=== PATIENT | female | born 2000 | race Caucasian/White ===

== ENCOUNTER 2025-06-23 09:35 | Outpatient (REF) | payer BC, SELFPAY ==
[2025-06-23 14:30] LABS: MANUAL DIFF FLAG NO
[2025-06-23 14:35] LABS: Hematocrit 42.2 % (37.0-47.0); Hemoglobin 14.5 g/dl (12.0-16.0); Imm Gran Abs Auto 0.02 X10*3/uL (0.00-0.03); Imm Gran Pct Auto 0.5 % (0.0-0.4); Lymphocytes Absolute Auto 1.4 X10*3/uL (1.2-4.9); Mean Corpuscular HGB Conc 34.4 g/dl (31.0-35.0); Mean Corpuscular Hemoglobin 30.7 pg (27.0-33.0); Mean Corpuscular Volume 89.2 fL (80.0-98.0); NRBC Abs Auto 0.000 X10*3/uL (0.0-0.012); NRBC Pct Auto 0.0 /100WBC (0.0-0.2); Platelet Count 271 X10*3/uL (160-400); Red Blood Count 4.73 X10*6/uL (4.20-5.50); White Blood Count 4.1 X10*3/uL (4.8-10.8)
[2025-06-23 15:09] LABS: Alanine Aminotransferase 14 U/L (0-31); Albumin Level 4.8 g/dL (3.5-5.0); Alkaline Phosphatase 66 U/L (39-117); Anion Gap 11 (12-20); Aspartate Amino Transferase 27 U/L (5-31); Blood Urea Nitrogen 10 mg/dL (9-16); Calcium 9.5 mg/dL (8.4-10.2); Carbon Dioxide 24 mmol/L (22-29); Chloride 107 mmol/L (96-108); Cholesterol 78 mg/dL (<200); Estimated Glomerular Filt Rate > 60; HDL Cholesterol 44 mg/dL (>40); Potassium 4.1 mmol/L (3.3-5.1); Sodium 138 mmol/L (135-145); Total Protein 7.3 g/dL (6.5-8.0); Triglycerides 60 mg/dL (<150)
== END 2025-06-23 09:36 | disposition home or self-care (01) ==
LOC: HO.WFDLDS 09:35
PROVIDERS: PCP Internal Medicine; Visit Provider Internal Medicine
DX: Z00.00 Encounter for general adult medical examination without abnormal findings (principal); Z13.0 Encounter for screening for diseases of the blood and blood-forming organs and certain disorders involving the immune mechanism; Z13.220 Encounter for screening for lipoid disorders; Z13.228 Encounter for screening for other metabolic disorders; R35.89 Other polyuria; Z23 Encounter for immunization
CPT/HCPCS: 36415; 80053; 80061; 83036; 84443; 85025; 90471; 90656; 90715; 96127

== ENCOUNTER 2025-06-23 09:35 | Outpatient (AMB) | payer BC, SELFPAY ==
--- NOTE | 2025-06-23 09:40 | MHC.PC.OV ---
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 HEENT: Denies changes in vision and hearing. RESPIRATORY: Denies SOB and cough. CV: Denies palpitations and CP GI: Denies abdominal pain, nausea, vomiting and diarrhea. : Denies dysuria and urinary frequency. MSK: Denies new myalgia and joint pain. SKIN: Denies rash and pruritus. NEUROLOGICAL: Denies headache PSYCHIATRIC: Denies recent changes in mood. PHYSICAL EXAM: GENERAL: Alert and oriented x 3. NAD EYES: EOMI. Anicteric. HENT: Moist mucous membranes. No scleral icterus. No cervical lymphadenopathy. LUNGS: Clear to auscultation bilaterally. CARDIOVASCULAR: Regular rate and rhythm. No murmur. No JVD. ABDOMEN: Soft, non-tender +bs EXTREMITIES: No edema. Non-tender. SKIN: No rashes or lesions. Warm. NEUROLOGIC: No focal neurological deficits. CN II-XII grossly intact PSYCHIATRIC: Cooperative. Appropriate mood and affect [facility] Social History Housing: House Patient Tobacco Use Status: Never used Tobacco e-Cigarette/Vaping Use: Never Used Second Hand Smoke Exposure: No service: No Current occupational status: employed Current occupation: [employer] Current occupational exposures/hazards: No Cognitive needs: No Hearing needs: No Vision needs: No Questionnaire PHQ-9 Over the last 2 weeks, how often have you been bothered by any of the following problems? 1. Little interest or pleasure in doing things: not at all 2. Feeling down, depressed, or hopeless: not at all 3. Trouble falling or staying asleep, or sleeping too much: several days 4. Feeling tired or having little energy: not at all 5. Poor appetite or overeating: not at all 6. Feeling bad about yourself - or that you are a failure or have let yourself or your family down: not at all 7. Trouble concentrating on things, such as reading the newspaper or watching television: not at all 8. Moving or speaking so slowly that other people could have noticed. Or the opposite - being so fidgety or restless that you have been moving around a lot more than usual: not at all 9. Thoughts that you would be better off or of hurting yourself in some way: not at all Total score: 1 Depression Screening Interpretation: Negative Depression Screening Done: Yes 55474 - PHQ-9 Billing: Yes Source: Developed by Drs. Octavio Dickerson, Caity Bernard, Reji Grullon and colleagues, with an educational matias from [employer]. Thrive Questionnaire Date Thrive assessed: 06/18/25 I am a: Patient What is your living situation today?: I have a steady place to live Within the past 12 months, did the food you bought not last and you didn't have the money to get more?: Never true Within the past 12 months, did you worry whether your food would run out before you got money to buy more?: Never true Do you have trouble paying for medicines?: No Do you have trouble getting transportation to medical appointments?: No Do you have trouble paying your heating and electricity bill?: No Do you have trouble taking care of your child, family member or friend?: No Do you have trouble with day-to-day activities such as bathing, preparing meals, shopping, managing finances, etc.?: No Are you currently unemployed and looking for a job?: No Are you interested in more education?: No Please select the resources that you would like help with: None Currently or been in a relationship where the following occur: No concerns reported THRIVE Score: 0 AUDIT C Alcohol Use Questionnaire (AUDIT-C) 1. How often do you have a drink containing alcohol?: 2-4 times a month 2. How many drinks containing alcohol do you have on a typical day when you are drinking?: 1 or 2 3. How often do you have six or more drinks on one occasion?: Less than monthly Total Score: 3 ANKIT-7 AMB Questionnaire ANKIT-7 Feeling nervous, anxious, or on edge: 0 = Not at all Not being able to stop or control worryin = Not at all Worrying too much about different things: 0 = Not at all Trouble relaxin = Not at all Being so restless that it is hard to sit still: 0 = Not at all Becoming easily annoyed or irritable: 0 = Not at all Feeling afraid as if something awful might happen: 0 = Not at all Total ANKIT-7 score (0-4 normal; 5-9 mild; 10-14 moderate; 15-21 severe): 0 Source: Developed by Drs. Octavio Dickerson, Caity Bernard, Reji Grullon and colleagues, with an educational matias from [employer]. Physical exam (Primary Care) Vital Signs: Last Vital Signs Temp 98.7 F 06/23/25 09:42 Pulse 80 06/23/25 09:42 Resp 12 06/23/25 09:42 BP 104/70 06/23/25 09:42 Pulse Ox 98 06/23/25 09:42 Oxygen Delivery Method Room Air 06/23/25 09:42 BMI result Body Mass Index 29.1 Tobacco/Smoking Status: Tobacco use Status Tobacco use date assessed 06/23/25 06/23/25 09:42 Patient Tobacco Use Status Never used Tobacco 06/23/25 09:42 e-Cigarette/Vaping Use Never Used 06/23/25 09:42 PHQ-9: PHQ-9 Score PHQ-9: Total score 1 06/23/25 10:18 Depression Screening Interpretation: Negative Thrive Assessment: Date of Thrive Assessment Date Thrive assessed 06/18/25 06/23/25 09:42 Currently or been in a relationship where the following occur: No concerns reported Office Procedures Flu Questionnaire Does the patient have a severe egg allergy?: No Does the patient have severe life threatening allergies?: No Does the patient have a fever or illness today?: No Has the patient ever had Guillain-Mcgraw Syndrome?: No Has the patient ever had any past reaction to a flu shot?: No Comment: Questioned by Caitlyn Allen MA Immunizations Fluarix [id number] (PF) 45 mcg (15 mcg x 3)/0.5 mL IM syringe Performing Provider: Stephanie Gonzalez MD Performing Location: [facility] [place] Family Medicine Administered by: Joselito Nuñez RN on 06/23/25 10:19 Dose Route Admin Location Dispensed Lot Number Expiration Date NDC Director Of Estate 0.5 mL IM Left Deltoid 0.5 mL [id number] 03/20/26 86036-126-46 [employer]LAXOSM[employer] VIS Given Date VIS Provided VIS Publication Date 06/23/25 Single Vaccine 24 Eligibility Eligibility Date Funding Source Not VFC Eligible 06/23/25 Private Administration Comments: administered by Caitlyn Allen MA Boostrix Tdap 2.5 Lf unit-8 mcg-5 Lf/0.5 mL intramuscular syringe Performing Provider: Stephanie Gonzalez MD Performing Location: [facility] Administered by: Joselito Nuñez RN on 06/23/25 10:19 Dose Route Admin Location Dispensed Lot Number Expiration Date NDC Director Of Estate 0.5 mL IM Right Deltoid 0.5 mL [id number] 07/14/27 30719-331-14 [employer]LAXOSMITHKLINE Total Dispensed Waste 0.5 mL 0 % VIS Given Date VIS Provided VIS Publication Date 06/23/25 Single Vaccine 21 Eligibility Eligibility Date Funding Source Not VFC Eligible 06/23/25 Private Administration Comments: administered by Caitlyn Allen MA Coding Level of Care Code New Pt Prev Care 18-39yr(04095 Diagnoses Physical exam Z00.00 Additional Codes PHQ-9 - 42403 - PHQ-9 Billing: Yes ([id number]) Assessment & Plan Assessment & Plan (1) Physical exam: Code(s): Z00.00 - Encounter for general adult medical examination without abnormal findings Plan 24 year old to establish care and for CPE Past medical, surgical, social reviewed Preventive measures for age discussed 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 Panel 06/23/25 R3. - Other polyuria, Z13.0 - Encounter for screening for diseases of the blood and blood-forming organs and certain disorders involving the immune mechanism, Z13.220 - Encounter for screening for lipoid disorders, Z13.228 - Encounter for screening for other metabolic disorders Lipid Panel 06/23/2589 - Other polyuria, Z13.0 - Encounter for screening for diseases of the blood and blood-forming organs and certain disorders involving the immune mechanism, Z13.220 - Encounter for screening for lipoid disorders, Z13.228 - Encounter for screening for other metabolic disorders Hemoglobin A1c 06/23/25 R3. - Other polyuria, Z13.0 - Encounter for screening for diseases of the blood and blood-forming organs and certain disorders involving the immune mechanism, Z13.220 - Encounter for screening for lipoid disorders, Z13.228 - Encounter for screening for other metabolic disorders TSH reflex Free T4 06/23/25 R3 - Other polyuria, Z13.0 - Encounter for screening for diseases of the blood and blood-forming organs and certain disorders involving the immune mechanism, Z13.220 - Encounter for screening for lipoid disorders, Z13.228 - Encounter for screening for other metabolic disorders Influenza [id number] Immunization 06/23/25 Z23 - Encounter for immunization TDaP Immunization 06/23/25 Z23 - Encounter for immunization
[2025-06-23 09:42] VITALS: BP 104/70; PULSE 80; RESP 12; TEMP 37.1; O2SAT 98; BMI 29.1
--- OUTSIDE RECORDS SUMMARY | 2025-06-23 10:13 | XMS_ITS | Encounter Summary ---
Author Organization [facility] Address [address] [place] [address] Phone Care Team Providers Care Ems Educator Name Role Phone Mariam Juares MD Primary Care Provider [phone] Encounter Details Date Type Department Care Team (Late st Contact Info) Description 01/15/2015 Documentation [facility] [place] [address] [place] [address] Family Medicine, Physician [address] [place], [place] [id number] Social History Tobacco Use Types Packs/Day Years Used Date Smoking Tobacco: Never Assessed Comments Unknown Sex and Gender Information Value Date Recorded Sex Assigned at Not on file Legal Sex Female 5:10 PM EDT Gender Identity Not on file Sexual Orientation Not on file documented as of this encounter Plan of Treatment Not on file documented as of this encounter Visit Diagnoses Not on filedocumented in this encounter Care Teams Ems Educator Relationship Specialty Start Date End Date Mariam Juares MD [address] [place] [address] [place] [address] PCP - General 05/01/17 05/13/23 documented as of this encounter
--- OUTSIDE RECORDS SUMMARY | 2025-06-23 10:13 | XMS_ITS | Encounter Summary ---
Author Organization [facility] Address [address] [place] [address] Phone Care Team Providers Care Technical Adjuster Name Role Phone Mariam Juares MD Primary Care Provider [phone] Encounter Details Date Type Department Care Team (Late st Contact Info) Description 03/31/2011 Documentation [facility] [address] [place] [address] Family Medicine, Physician [address] [place], [place] [phone] Social History Tobacco Use Types Packs/Day Years [...] on filedocumented in this encounter Care Teams Technical Adjuster Relationship Specialty Start Date End Date Mariam Juares MD [address] [place] [address] [place] [address] PCP - General 05/01/17 05/13/23 documented as of this encounter
--- OUTSIDE RECORDS SUMMARY | 2025-06-23 10:13 | XMS_ITS | Encounter Summary ---
Author Organization [facility] Address [address] [place] [address] Phone Care Team Providers Care General Maintenance Engineer Name Role Phone Mariam Juares MD Primary Care Provider [phone] Encounter Details Date Type Department Care Team (Late st Contact Info) Description 05/21/2016 Documentation [facility] [place] Family Medicine [address] [place] [address] Family Medicine, Physician [facility] [address] [place], [place] [address] Social History Tobacco Use Types Packs/Day Years Used Date Smoking Tobacco: Never Comments:Never smoker Comments Unknown Sex and Gender Information Value Date Recorded Sex Assigned at Not on file Legal Sex Female 5:10 PM EDT Gender Identity Not on file Sexual Orientation Not on file documented as of this encounter Plan of Treatment Not on file documented as of this encounter Visit Diagnoses Not on filedocumented in this encounter Care Teams General Maintenance Engineer Relationship Specialty Start Date End Date Mariam Juares MD [address] [place] [address] [place] [address] PCP - General 05/01/17 05/13/23 documented as of this encounter
--- OUTSIDE RECORDS SUMMARY | 2025-06-23 10:13 | XMS_ITS | Encounter Summary ---
Author Organization [facility] Address [address] [place] [address] Phone Care Team Providers Care Mooner Name Role Phone Mariam Juares MD Primary Care Provider [phone] Encounter Details Date Type Department Care Team (Late st Contact Info) Description 12/06/2013 Documentation [facility] [address] [place] [address] Family Medicine, Physician [address] [place], [place] [phone] Social History Tobacco Use Types Packs/Day Years [...] on filedocumented in this encounter Care Teams Mooner Relationship Specialty Start Date End Date Mariam Juares MD [address] [place] [address] [place] [address] PCP - General 05/01/17 05/13/23 documented as of this encounter
--- OUTSIDE RECORDS SUMMARY | 2025-06-23 10:13 | XMS_ITS | Encounter Summary ---
Author Organization [facility] Address [address] [place] [address] Phone Care Team Providers Care Child Welfare Assistant Name Role Phone Mariam Juares MD Primary Care Provider [phone] Encounter Details Date Type Department Care Team (Late st Contact Info) Description 09/28/2012 Documentation [facility] [address] [place] [address] Family Medicine, Physician [address] [place], [place] [phone] Social History Tobacco Use Types Packs/Day Years [...] on filedocumented in this encounter Care Teams Child Welfare Assistant Relationship Specialty Start Date End Date Mariam Juares MD [address] [place] [address] [place] [address] PCP - General 05/01/17 05/13/23 documented as of this encounter
--- OUTSIDE RECORDS SUMMARY | 2025-06-23 10:13 | XMS_ITS | Encounter Summary ---
Author Organization [facility] Address [address] [place] [address] Phone Care Team Providers Care Tool Trouble Shooter Name Role Phone Mariam Juares MD Primary Care Provider [phone] Encounter Details Date Type Department Care Team (Late st Contact Info) Description 01/16/2015 Documentation [facility] [address] [place] [address] Family Medicine, Physician [address] [place], [place] [phone] Social History Tobacco Use Types Packs/Day Years [...] on filedocumented in this encounter Care Teams Tool Trouble Shooter Relationship Specialty Start Date End Date Mariam Juares MD [address] [place] [address] [place] [address] PCP - General 05/01/17 05/13/23 documented as of this encounter
--- OUTSIDE RECORDS SUMMARY | 2025-06-23 10:13 | XMS_ITS | Encounter Summary ---
Author Organization [facility] Address [address] [place] [address] Phone Care Team Providers Care Quality Control Coordinator Name Role Phone Mariam Juares MD Primary Care Provider [phone] Encounter Details Date Type Department Care Team (Late st Contact Info) Description 09/25/2011 Documentation [facility] [address] [place] [address] Family Medicine, Physician [address] [place], [place] [phone] Social History Tobacco Use Types Packs/Day Years [...] on filedocumented in this encounter Care Teams Quality Control Coordinator Relationship Specialty Start Date End Date Mariam Juares MD [address] [place] [address] [place] [address] PCP - General 05/01/17 05/13/23 documented as of this encounter
--- OUTSIDE RECORDS SUMMARY | 2025-06-23 10:13 | XMS_ITS | Encounter Summary ---
Author Organization [facility] Address [address] [place] [address] Phone Care Team Providers Care Plastics Spreading Machine Operator Name Role Phone Mariam Juares MD Primary Care Provider [phone] Encounter Details Date Type Department Care Team (Late st Contact Info) Description 05/21/2016 Documentation [facility] [place] Family Medicine [address] [place] [address] Family Medicine, Physician [facility] [address] [place], [place] [phone] Social History Tobacco Use Types Packs/Day Years [...] on filedocumented in this encounter Care Teams Plastics Spreading Machine Operator Relationship Specialty Start Date End Date Mariam Juares MD [address] [place] [address] [place] [address] PCP - General 05/01/17 05/13/23 documented as of this encounter
--- OUTSIDE RECORDS SUMMARY | 2025-06-23 10:13 | XMS_ITS | Encounter Summary ---
Author Organization [facility] Address [address] [place] [address] Phone Care Team Providers Care Language Assistant Name Role Phone Mariam Juares MD Primary Care Provider [phone] Encounter Details Date Type Department Care Team (Late st Contact Info) Description 05/21/2016 Documentation [facility] [place] Family Medicine [address] [place] [address] Family Medicine, Physician [facility] [address] [place], [place] [address] Social History Tobacco Use Types Packs/Day Years [...] on filedocumented in this encounter Care Teams Language Assistant Relationship Specialty Start Date End Date Mariam Juares MD [address] [place] [address] [place] [address] PCP - General 05/01/17 05/13/23 documented as of this encounter
--- OUTSIDE RECORDS SUMMARY | 2025-06-23 10:13 | XMS_ITS | Clinical Summary ---
Author Organization [facility] Address [address] [place] [phone] Phone Care Team Providers Care Grader Green Meat Name Role Phone Unavailable Primary Care Provider Unavailabl e Allergies No known active allergies Medications Norgestim-Eth Estrad Triphasic (TRI-SPRINTEC PO) Take by mouth. Active Active Problems Problem Noted Date Diagnosed Date Personal history of COVID-19 01/11/2021 Overview (01/11/2021): Diagnosed 09/19/2020; never had fevers/just some chills, felt tired; lasted about 8-9 days; had stuffy nose when she got her test; day or two later, symptoms got worse--chills/tired/loss taste and smell for a couple of days; no CP/sob/no hospitalization; no current symptoms; just during the time of the illness/nothing lingering Negative cardiac screening-cleared Assessment & Plan (01/11/2021 10:02 AM EDT): Diagnosed 09/19/2020; never had fevers/just some chills, felt tired; lasted about 8-9 days; had stuffy nose when she got her test; day or two later, symptoms got worse--chills/tired/loss taste and smell for a couple of days; no CP/sob/no hospitalization; no current symptoms; just during the time of the illness/nothing lingering Negative cardiac screening-cleared Dysmenorrhea in adolescent 11/10/2019 Overview (11/10/2019): Considering using ocps; no personal h/o bld clots Immunizations Immunization Administration Dates Next Due COVID-19 Pfizer, monovalent, 12+ years 1 DTaP 5 07/30/2006, 4,01/19/2003,11/21,2002 H1N1 09/06/2009 HPV Vaccine 9 Valent 05/19/2016 HPV, Quadrivalent 01/15/2015,12/05/2013 Hep A, ped/adol 01/15/2015,12/05/2013 Hep B, ped/adol 01/19/2003,2002,2002 Hib (PRP-T) 11/03/2003, 3,2002,09/22 IPV 07/30/2006, 4,2002,09/22 Influenza Split 09/27/2012,08/05/2010 Influenza, injectable, quadr ivalent, preservative free 09/04/2020,11/10/2019,11/01/2018,10/30 Influenza, injectable, trivalent 09/06/2009,10/2003 Influenza, intranasal, trivalent 09/25/2011 MMR 11/03/2003 MMRV 07/30/2006 Meningococcal B Trumenba 02/14/2021 Meningococcal Conj (Menactra) MCV4P 11/01/2018,0 12/05/2013 Pneumococcal Conjugate 07/24/2003,2002,2002,09/22 Tdap 12/05/2013 Varicella 07/24/2003 Family History Medical History Relation Name Comments Autism Brother Kian Autism spectrum disorder Brother Kian No Known Problems Father Matty Heart disease (Premature) Maternal Grandfather Hyperlipidemia Maternal Grandfather No Known Problems Mother Karol Relation Name Status Comments Brother Kian Alive Brother: Autism Father Matty Alive Father: Alive a nd well Maternal Grandfather Mother Karol Alive Mother: Alive a nd well Other Family history of *Sudden /[place] under 55, No family history of *CVA/Stroke, Family history of *Heart Disease, Family history of Sudden /[place] under 55, Family history of *Dental caries Social History Tobacco Use Types Packs/Day Years Used Date Smoking Tobacco: Never Smokeless Tobacco: Never Tobacco Cessation:Counseling Given: Yes Comments:Never smoker Alcohol Use Standard Drinks/Week Comments No 0 (1 standard drink = 0.6 oz pur e alcohol) Hunger/Food Answer Date Recorded In the last 12 months, did y ou or your family ever eat less than you felt you should because there wasn't enough money for food? No 01/11/2021 Stable Housing Answer Date Recorded Are you worried that in the next 2 months you may not have stable housing? No 01/11/2021 Transportation Concerns Answer Date Rec orded In the last 12 months, have you or your family ever had to go without healthcare because you didn't have a way to get there? No 01/11/2021 Hazards in Home Answer Date Recorded Think about the place you li ve. Do you have problems with any of the following? Pests (mice or roaches), mold, no/not working smoke detectors, water leaks, no window guards. No 2020 Financing Utilities Answer Date Recorde d In the last 12 months, has t he electric, gas, oil, or water company threatened to shut off your services in your home? No 01/11/2021 Safety at Home Answer Date Recorded Are you or your family worried about feeling saf e in your home? No 01/11/2021 Outside Support Answer Date Recorded Do you feel that you need mo re support from other people or programs to help you care for yourself or your family? No 01/11/2021 Understanding Health Concerns Answer Da te Recorded Do you need help understandi ng your or your child's healthcare needs (diagnosis, medications, plan, etc.)? No 01/11/2021 Financing Health Concerns Answer Date R ecorded In the last 12 months, was t here a time when your child needed to see a doctor or get medications or supplies but could not because of cost? No 01/11/2021 Missing School or Work Answer Date Jasper rded Did you or your child miss s chool or work because of a health problem that could have been avoided? No 01/11/2021 Comments Unknown Sex and Gender Information Value Date Recorded Sex Assigned at Not on file Legal Sex Female 5:10 PM EDT Gender Identity Not on file Sexual Orientation Not on file Last Filed Vital Signs Vital Sign Reading Time Taken Comments Blood Pressure 115/76 01/11/2021 8:54 AM EDT Pulse 94 01/11/2021 8:54 AM EDT Temperature 36.7 C (98 F) 10/30/2017 2:39 PM EST Respiratory Rate - - Oxygen Saturation - - Inhaled Oxygen Concentration - - Weight 70.1 kg (154 lb 9.6 oz) 01/11/2021 8:54 A M EDT Height 161.9 cm (5' 3.75 ) 01/11/2021 8:54 AM ED T Body Mass Index 26.75 01/11/2021 8:54 AM EDT Plan of Treatment Health Maintenance Due Date Last Done Comments Men B Vaccine (2 of 2 - Trum enba SCDM 2-dose series) 08/17/2021 02/14/2021 DTaP,Tdap,and Td Vaccines (7 - Td or Tdap) 12/06/2023 12/05/2013, 07/30/2006, 01/22/2004, Additional history exists Influenza Vaccines (#1) 2025 09/04/20, 11/10/2019, 11/01/2018, Additional history exists COVID-19 Vaccine (2024- 6 season) 2025 10/06/2021, 01/25/2021, 01/03/2021 Hepatitis B Vaccines Completed 01/19/2003, 2002, 2002 Pneumococcal Vaccine Completed 07/24/2003, 01/19/2003, 2002, Additional history exists HIB Vaccines Completed 11/03/2003, 0509/2002, 2002, Additional history exists IPV Vaccines Completed 07/30/2006, 10/22, 2002, Additional history exists MMR Vaccines Completed 07/30/2006, 11/03/2003 Varicella Vaccines Completed 07/30/2006, 07/24/2003 Hepatitis A Vaccines Completed 01/15/2015, 12/06/19 14 HPV Vaccines Completed 05/19/2016, 12/21, 12/05/2013 Meningococcal Vaccine Completed 11/01/2018, 014 Procedures * Due to [place] state law, this organization might not be sharing sensitive test results. Procedure Name Priority Date/Time Associated Diagnosis Comments CHLAMYDIA AND GONORRHEA, AMPLIFIED Routine 01/11/2021 9:17 AM EDT Screening examination for bacterial and spirochetal disease from Last 3 Months or Most Recently Relevant to Health Maintenance Results * Due to [place] state law, this organization might not be sharing sensitive test results. * Chlamydia and Gonorrhoea, Amplified (01/11/2021 9:17 AM EDT) Chlamydia Trachomatis, DNA Probe NEGATIVE (NEG) [facility] Comment: No Chlamydia Trachomatis RNA detected in this patient's sample (REFERENCE RANGE/NORMAL VALUE: NOT DETECTED) Note: This test uses pediatric allergist- mediated amplification method to detect rRNA from C. Trachomatis URINE GC AMP PROBE NEGATIVE (NEG) [facility] Comment: No Neisseria Gonorrhoeae RNA detected in this patient's sample (REFERENCE RANGE/NORMAL VALUE: NOT DETECTED) NOTE: This test uses pediatric allergist-mediated amplification method to detect rRNA from N.Gonorrhoeae. A negative result does not preclude infection. In the case of a negative urine result, testing of an endocervical(female) or urethral (male) specimen is recommended if there is high clinical suspicion of infection. Due to very high sensitivity of Nucleic Acid Amplification Test, false positive results may occur. Therefore, specimen handling is extremely important. In patients in whom the disease is unlikely, additional sample for testing should be considered after an initial positive result. The performance characteristics of this test have not been evaluated in children. The Aptima Combo2 assay is not intended for the evaluation of suspected sexual abuse or for other medico-legal indications. The ordering provider should assess if the patient had consensual sex without risk of sexual abuse. Consult the [facility] if needed. Contact phone number . Therapeutic failure or success cannot be determined with the Aptima Combo2 assay since nucleic acid may persist following appropriate antimicrobial therapy. The Centers for Disease Control and Prevention (CDC) recommends confirmatory retesting using culture or a different nucleic acid amplification test when positive results occur, if indicated. Testing performed or reported by [facility], a Service of [facility], [address], [place] [address] Esteban Sow MD, Chief I Dispatcher Urine 01/11/2021 9:17 AM EDT 01/11/2021 4:43 PM EDT us Mariam Juares MD LAB MICROBIOLOGY - GENERAL ORD ERABLES Final Result [facility] from Last 3 Months or Most Recently Relevant to Health Maintenance
--- OUTSIDE RECORDS SUMMARY | 2025-06-23 10:13 | XMS_ITS | Encounter Summary ---
Author Organization [facility] Address [address] [place] [address] Phone Care Team Providers Care Court Abstractor Name Role Phone Mariam Juares MD Primary Care Provider [phone] Encounter Details Date Type Department Care Team (Late st Contact Info) Description 09/28/2012 Documentation [facility] [address] [place] [address] Family Medicine, Physician [address] [place], [place] [id number] Social History Tobacco Use Types Packs/Day Years [...] on filedocumented in this encounter Care Teams Court Abstractor Relationship Specialty Start Date End Date Mariam Juares MD [address] [place] [address] [place] [address] PCP - General 05/01/17 05/13/23 documented as of this encounter
--- OUTSIDE RECORDS SUMMARY | 2025-06-23 10:13 | XMS_ITS | Encounter Summary ---
Author Organization [facility] Address [address] [place] [address] Phone Care Team Providers Care Senior Quality Assurance Engineer Name Role Phone Mariam Juares MD Primary Care Provider [phone] Encounter Details Date Type Department Care Team (Late st Contact Info) Description 01/15/2015 Documentation [facility] [address] [place] [address] Family Medicine, Physician [address] [place], [place] [phone] Social History Tobacco Use Types Packs/Day Years [...] on filedocumented in this encounter Care Teams Senior Quality Assurance Engineer Relationship Specialty Start Date End Date Mariam Juares MD [address] [place] [address] [place] [address] PCP - General 05/01/17 05/13/23 documented as of this encounter
--- OUTSIDE RECORDS SUMMARY | 2025-06-23 10:13 | XMS_ITS | Encounter Summary ---
Author Organization [facility] Address [address] [place] [address] Phone Care Team Providers Care Supervisor [employer] Name Role Phone Mariam Juares MD Primary Care Provider [phone] Encounter Details Date Type Department Care Team (Late st Contact Info) Description 12/06/2013 Documentation [facility] [address] [place] [address] Family Medicine, Physician [address] [place], [place] [phone] Social History Tobacco Use Types Packs/Day Years [...] on filedocumented in this encounter Care Teams Supervisor Mold Shop Relationship Specialty Start Date End Date Mariam Juares MD [address] [place] [address] [place] [address] PCP - General 05/01/17 05/13/23 documented as of this encounter
--- OUTSIDE RECORDS SUMMARY | 2025-06-23 10:13 | XMS_ITS | Encounter Summary ---
Author Organization [facility] Address [address] [place] [address] Phone Care Team Providers Care Application Helper Name Role Phone Mariam Juares MD Primary Care Provider [phone] Encounter Details Date Type Department Care Team (Late st Contact Info) Description 05/07/2017 Conversion Encounter [facility] [place] [address] [place] [address] Social History Tobacco Use Types Packs/Day Years [...] on filedocumented in this encounter Care Teams Application Helper Relationship Specialty Start Date End Date Mariam Juares MD [address] [place] [address] PCP - General 05/01/17 05/13/23 documented as of this encounter
--- OUTSIDE RECORDS SUMMARY | 2025-06-23 10:13 | XMS_ITS | Encounter Summary ---
Author Organization [facility] Address [address] [place] [address] Phone Care Team Providers Care Scalder Name Role Phone Mariam Juares MD Primary Care Provider [phone] Encounter Details Date Type Department Care Team (Late st Contact Info) Description 09/26/2011 Documentation [facility] [address] [place] [address] Family Medicine, Physician [address] [place], [place] [phone] Social History Tobacco Use Types Packs/Day Years [...] on filedocumented in this encounter Care Teams Scalder Relationship Specialty Start Date End Date Mariam Juares MD [address] [place] [address] [place] [address] PCP - General 05/01/17 05/13/23 documented as of this encounter
== END 2025-06-23 10:17 | disposition home or self-care (01) ==
LOC: HO.HMCFM 09:36
PROVIDERS: PCP Internal Medicine; Visit Provider Internal Medicine
DX: Z00.00 Encounter for general adult medical examination without abnormal findings (principal)